=== PATIENT | male | born 1955 | race Caucasian/White ===

== ENCOUNTER 2018-03-12 12:01 | Inpatient (IN) | payer BC, OTHER ==
[2018-03-12] MEDS ORDERED: Morphine 4 MG/ML Syringe IVPUSH ONE (12:15)
[2018-03-12] MEDS ORDERED: Ondansetron 4 MG/2 ML SDV IVPUSH ONE (12:15)
[2018-03-12] MEDS ORDERED: Sodium Chloride 0.9% 1,000 ML IV ONE (12:15)
--- NOTE | 2018-03-12 12:15 | EDM.PDOC ---
ED HPI GENERAL MEDICAL PROBLEM - General Chief Complaint: Abdominal Pain Stated Complaint: UNK Time Seen by Provider: 03/12/18 12:13 Source of Information: Reports: Patient History Limitations: Reports: No Limitations - History of Present Illness INITIAL COMMENTS - FREE TEXT/NARRATIVE: HISTORY AND PHYSICAL: History of present illness: Patient is a 63-year-old female who presents to the emergency room from [facility] with complaints of abdominal pain 4-5 days. During this time he has had a decrease in appetite and has not been eating or drinking appropriately. He states he has not had a bowel movement during this time and feels that his abdomen is distended. Has been able to pass gas, but no BM. An x- ray from the clinic shows gas filled loops of the small bowel which are nonspecific but may represent an ileus. He is here for further evaluation and CT imaging. The x-ray also did show a probable left lower lobe pneumonia. He states he has been coughing frequently over the past couple days but denies any fever or chills. The states that she has stopped his oral Lasix as she was concerned this would make him dehydrated as he has not been eating and drinking. He denies any chest pain, shortness of breath, nausea, vomiting. Past medical history of H. pylori infections, she met brain injury and hemorrhagic stroke. Is a chronic daily alcohol user, last alcoholic drink was yesterday. Denies any drug abuse. Review of systems: As per history of present illness and below otherwise all systems reviewed and negative. Past medical history: As per history of present illness and as reviewed below otherwise noncontributory. Surgical history: As per history of present illness and as reviewed below otherwise noncontributory. Social history: No reported history of drug or alcohol abuse. Family history: As per history of present illness and as reviewed below otherwise noncontributory. Physical exam: General: Well-developed and well-nourished 63-year-old male. Alert and oriented. Nontoxic appearing and in no acute distress. HEENT: Atraumatic, normocephalic, pupils equal and reactive bilaterally, negative for conjunctival pallor or scleral icterus, mucous membranes moist, throat clear, neck supple, nontender, trachea midline. No drooling or trismus noted. No meningeal signs Lungs: Clear to auscultation, breath sounds equal bilaterally, chest nontender. Heart: S1S2, regular rate and rhythm without overt murmur Abdomen: Distended and semi-firm, tender throughout. Hypoactive BS. Negative for masses. Negative for costovertebral tenderness. Pelvis: Stable nontender. Genitourinary: Deferred. Rectal: Deferred. Skin: Pale, intact, warm, dry. No lesions or rashes noted. Extremities: Atraumatic, negative for cords or calf pain. Neurovascular unremarkable. Neuro: Awake, alert, oriented. Cranial nerves II through XII unremarkable. Cerebellum unremarkable. Motor and sensory unremarkable throughout. Exam nonfocal. Notes: Dr Ardon was made aware of this patient early, as she may be seeing him once results are obtained. Patient is aware that we do need to perform a CT of the abdomen and pelvis along with routine lab work. I am to be nothing by mouth until we do received the results of the CT scan. He is agreeable to plan of care. Today's hemoglobin is 8.9(L). I do note a hemoglobin that was drawn on 10/15/16 which was 9.9(L). A Type and Screen was done. Troponin 0.321, patient has no chest pain or SOB. EKG shows NSR with rate 87. Was reviewed by Dr Bedolla as well. Mid left basilar atelectasis and/or infiltrate with a small left pleural effusion. Dr Ardon was down here and did evaluate the CT scan. Patient continues to be pain free; repeat EKG was completed. 1423: CT of the abdomen shows cirrhosis of the liver, moderate amount of abdominal ascites, gastroesophageal rectal varices, and cholelithiasis without evidence of cholecystitis. Dr. Jeffrey was consult at this time and made aware of the patient. He states he will come down to assess and talk with the patient about admission versus transfer. Dr Jeffrey is here to evaluate patient. He is aware the they hypokalemia has yet to be addressed. Will admit this patient to Med/Surg, inpatient, with telemetry. Diagnostics: CBC, CMP, UA, urine drug screen, EtOH, EKG, CT abdomen and pelvis, 2 view chest x-ray Therapeutics: IV fluid, Zofran, morphine Impression: Hypokalemia Cirrhosis of liver Ascites Cholelithiasis Elevated Troponin Plan: Inpatient admission Definitive disposition and diagnosis as appropriate pending reevaluation and review of above. abdomen Pain Score (Numeric/FACES): 4 - Related Data Allergies Allergy/AdvReac Type Severity Reaction Status Date / Time No Known Allergies Allergy Verified 03/12/18 12:05 Home Meds: Home Meds Acamprosate Calcium 2 tab PO TID 10/10/16 [History] Omeprazole Magnesium [Prilosec Otc] 40 mg PO DAILY #30 tablet. 10/15/16 [Rx] Furosemide 20 mg PO BID 03/12/18 [History] LORazepam 1 mg PO QID PRN 03/12/18 [History] buPROPion [buPROPion XL] 150 mg PO DAILY 03/12/18 [History] Past Medical History HEENT History: Reports: Other (See Below) Other HEENT History: top and bottom dentures Cardiovascular History: Reports: Other (See Below) Other Cardiovascular History: hypotension Respiratory History: Reports: Other (See Below) Other Respiratory History: smokes 1 1/2 to 2 packs of cigarettes per day Gastrointestinal History: Reports: Chronic Diarrhea Other Gastrointestinal History: elevated liver enzymes Neurological History: Reports: Head Trauma, TIA Other Neuro History: hx TIA 3 yrs ago, hx head trauma Psychiatric History: Reports: Depression - Infectious Disease History Infectious Disease History: Reports: Chicken Pox, Measles, Mumps - Past Surgical History Head Surgeries/Procedures: Reports: None Social & Family History - Family History Family Medical History: Noncontributory - Tobacco Use Smoking Status *Q: Current Every Day Smoker Years of Tobacco use: 28 Packs/Tins Daily: 1 - Alcohol Use Days Per Week of Alcohol Use: 7 Number of Drinks Per Day: 6 Total Drinks Per Week: 42 - Recreational Drug Use Recreational Drug Use: No ED ROS GENERAL - Review of Systems Review Of Systems: ROS reveals no pertinent complaints other than HPI. ED EXAM, GI/ABD - Physical Exam Exam: See Below (See dictation) Course - Vital Signs Last Recorded V/S: Last Vital Signs Temp 98.2 F 03/12/18 12:05 Pulse 99 03/12/18 13:49 Resp 16 03/12/18 13:49 BP 110/77 03/12/18 13:49 Pulse Ox 94 L 03/12/18 13:49 - Orders/Labs/Meds Orders: Active Orders 24 hr Category Date Time Status Admission Status [Patient Status] [ADT] Stat ADT 06/14/18 15:06 Ordered EKG Documentation Completion [RC] STAT Care 03/12/18 12:27 Active EKG Documentation Completion [RC] STAT Care 03/12/18 13:16 Active CULTURE BLOOD [BC] Stat Lab 03/12/18 12:20 Received CULTURE BLOOD [BC] Stat Lab 03/12/18 12:30 Received DRUG SCREEN, URINE [URCHEM] Stat Lab 03/12/18 13:05 Ordered MAGNESIUM [CHEM] Stat Lab 03/12/18 12:28 Received PHOSPHORUS [CHEM] Stat Lab 03/12/18 12:28 Received UA W/MICROSCOPIC [URIN] Stat Lab 03/12/18 13:05 Ordered Blood Culture x2 Reflex Set [OM.PC] Stat Oth 03/12/18 12:16 Ordered Labs: Laboratory Tests 03/12/18 03/12/18 03/12/18 Range/Units 12:18 12:18 12:28 WBC 6.33 (4.0-11.0) K/uL RBC 2.99 L (4.50-5.90) M/uL Hgb 8.9 L (13.0-17.0) g/dL Hct 27.2 L (38.0-50.0) % MCV 91.0 (80.0-98.0) fL MCH 29.8 (27.0-32.0) pg MCHC 32.7 (31.0-37.0) g/dL RDW Std Deviation 62.0 (28.0-62.0) fl RDW Coeff of Annette 20 H (11.0-15.0) % Plt Count 148 L (150-400) K/uL MPV 9.70 (7.40-12.00) fL Neut % (Auto) 59.0 (48.0-80.0) % Lymph % (Auto) 29.5 (16.0-40.0) % Weld % (Auto) 10.4 (0.0-15.0) % Eos % (Auto) 0.3 (0.0-7.0) % Baso % (Auto) 0.8 (0.0-1.5) % Neut # (Auto) 3.7 (1.4-5.7) K/uL Lymph # (Auto) 1.9 (0.6-2.4) K/uL Weld # (Auto) 0.7 (0.0-0.8) K/uL Eos # (Auto) 0.0 (0.0-0.7) K/uL Baso # (Auto) 0.1 (0.0-0.1) K/uL Nucleated RBC % 0.0 /100WBC Nucleated RBCs # 0 K/uL INR Sodium 135 L (136-148) mmol/L Potassium 2.9 L (3.5-5.1) mmol/L Chloride 95 L (98-107) mmol/L Carbon Dioxide 31.6 (21.0-32.0) mmol/L BUN 10 (7.0-18.0) mg/dL Creatinine 1.0 (0.8-1.3) mg/dL Est Cr Clr Drug Dosing 84.71 mL/min Estimated GFR (MDRD) > 60.0 ml/min Glucose 105 (74-106) mg/dL Calcium 8.2 L (8.5-10.1) mg/dL Total Bilirubin 1.7 H (0.2-1.0) mg/dL AST 83 H (15-37) IU/L ALT 35 (14-63) IU/L Alkaline Phosphatase 151 H (46-116) U/L Troponin I 0.321 H* (0.000-0.056) ng/mL Total Protein 6.5 (6.4-8.2) g/dL Albumin 2.7 L (3.4-5.0) g/dL Globulin 3.8 H (2.0-3.5) g/dL Albumin/Globulin Ratio 0.7 L (1.3-2.8) Amylase 32 (25-115) U/L Lipase 96 (73-393) U/L Urine Color Urine Appearance Urine pH (5.0-8.0) Ur Specific [place] (1.001-1.035) Urine Protein (NEGATIVE) mg/dL Urine Glucose (UA) (NEGATIVE) mg/dL Urine Ketones (NEGATIVE) mg/dL Urine Occult Blood (NEGATIVE) Urine Nitrite (NEGATIVE) Urine Bilirubin (NEGATIVE) Urine Ictotest Urine Urobilinogen (<2.0) EU/dL Ur Leukocyte Esterase (NEGATIVE) Urine RBC (0-2/HPF) Urine WBC (0-5/HPF) Ur Epithelial Cells (NONE-FEW) Calcium Oxalate Crystal (NEGATIVE) Urine Bacteria (NEGATIVE) Urine Opiates Screen (NEGATIVE) Ur Oxycodone Screen (NEGATIVE) Urine Methadone Screen (NEGATIVE) Ur Barbiturates Screen (NEGATIVE) Ur Phencyclidine Scrn (NEGATIVE) Ur Amphetamine Screen (NEGATIVE) U Methamphetamines Scrn (NEGATIVE) U Benzodiazepines Scrn (NEGATIVE) U Cocaine Metab Screen (NEGATIVE) U Marijuana (THC) Screen (NEGATIVE) Ethyl Alcohol 146 mg/dL Blood Type Antibody Screen 03/12/18 03/12/18 03/12/18 Range/Units 12:28 12:46 13:05 WBC (4.0-11.0) K/uL RBC (4.50-5.90) M/uL Hgb (13.0-17.0) g/dL Hct (38.0-50.0) % MCV (80.0-98.0) fL MCH (27.0-32.0) pg MCHC (31.0-37.0) g/dL RDW Std Deviation (28.0-62.0) fl RDW Coeff of Annette (11.0-15.0) % Plt Count (150-400) K/uL MPV (7.40-12.00) fL Neut % (Auto) (48.0-80.0) % Lymph % (Auto) (16.0-40.0) % Weld % (Auto) (0.0-15.0) % Eos % (Auto) (0.0-7.0) % Baso % (Auto) (0.0-1.5) % Neut # (Auto) (1.4-5.7) K/uL Lymph # (Auto) (0.6-2.4) K/uL Weld # (Auto) (0.0-0.8) K/uL Eos # (Auto) (0.0-0.7) K/uL Baso # (Auto) (0.0-0.1) K/uL Nucleated RBC % /100WBC Nucleated RBCs # K/uL INR 1.34 Sodium (136-148) mmol/L Potassium (3.5-5.1) mmol/L Chloride (98-107) mmol/L Carbon Dioxide (21.0-32.0) mmol/L BUN (7.0-18.0) mg/dL Creatinine (0.8-1.3) mg/dL Est Cr Clr Drug Dosing mL/min Estimated GFR (MDRD) ml/min Glucose (74-106) mg/dL Calcium (8.5-10.1) mg/dL Total Bilirubin (0.2-1.0) mg/dL AST (15-37) IU/L ALT (14-63) IU/L Alkaline Phosphatase (46-116) U/L Troponin I (0.000-0.056) ng/mL Total Protein (6.4-8.2) g/dL Albumin (3.4-5.0) g/dL Globulin (2.0-3.5) g/dL Albumin/Globulin Ratio (1.3-2.8) Amylase (25-115) U/L Lipase (73-393) U/L Urine Color YELLOW Urine Appearance CLEAR Urine pH 6.0 (5.0-8.0) Ur Specific [place] 1.020 (1.001-1.035) Urine Protein NEGATIVE (NEGATIVE) mg/dL Urine Glucose (UA) NEGATIVE (NEGATIVE) mg/dL Urine Ketones NEGATIVE (NEGATIVE) mg/dL Urine Occult Blood NEGATIVE (NEGATIVE) Urine Nitrite NEGATIVE (NEGATIVE) Urine Bilirubin MODERATE H (NEGATIVE) Urine Ictotest NEGATIVE Urine Urobilinogen 4.0 H (<2.0) EU/dL Ur Leukocyte Esterase NEGATIVE (NEGATIVE) Urine RBC 0-1 (0-2/HPF) Urine WBC 0-1 (0-5/HPF) Ur Epithelial Cells RARE (NONE-FEW) Calcium Oxalate Crystal OCCASIONAL (NEGATIVE) Urine Bacteria RARE (NEGATIVE) Urine Opiates Screen (NEGATIVE) Ur Oxycodone Screen (NEGATIVE) Urine Methadone Screen (NEGATIVE) Ur Barbiturates Screen (NEGATIVE) Ur Phencyclidine Scrn (NEGATIVE) Ur Amphetamine Screen (NEGATIVE) U Methamphetamines Scrn (NEGATIVE) U Benzodiazepines Scrn (NEGATIVE) U Cocaine Metab Screen (NEGATIVE) U Marijuana (THC) Screen (NEGATIVE) Ethyl Alcohol mg/dL Blood Type O POSITIVE Antibody Screen NEGATIVE 03/12/18 Range/Units 13:05 WBC (4.0-11.0) K/uL RBC (4.50-5.90) M/uL Hgb (13.0-17.0) g/dL Hct (38.0-50.0) % MCV (80.0-98.0) fL MCH (27.0-32.0) pg MCHC (31.0-37.0) g/dL RDW Std Deviation (28.0-62.0) fl RDW Coeff of Annette (11.0-15.0) % Plt Count (150-400) K/uL MPV (7.40-12.00) fL Neut % (Auto) (48.0-80.0) % Lymph % (Auto) (16.0-40.0) % Weld % (Auto) (0.0-15.0) % Eos % (Auto) (0.0-7.0) % Baso % (Auto) (0.0-1.5) % Neut # (Auto) (1.4-5.7) K/uL Lymph # (Auto) (0.6-2.4) K/uL Weld # (Auto) (0.0-0.8) K/uL Eos # (Auto) (0.0-0.7) K/uL Baso # (Auto) (0.0-0.1) K/uL Nucleated RBC % /100WBC Nucleated RBCs # K/uL INR Sodium (136-148) mmol/L Potassium (3.5-5.1) mmol/L Chloride (98-107) mmol/L Carbon Dioxide (21.0-32.0) mmol/L BUN (7.0-18.0) mg/dL Creatinine (0.8-1.3) mg/dL Est Cr Clr Drug Dosing mL/min Estimated GFR (MDRD) ml/min Glucose (74-106) mg/dL Calcium (8.5-10.1) mg/dL Total Bilirubin (0.2-1.0) mg/dL AST (15-37) IU/L ALT (14-63) IU/L Alkaline Phosphatase (46-116) U/L Troponin I (0.000-0.056) ng/mL Total Protein (6.4-8.2) g/dL Albumin (3.4-5.0) g/dL Globulin (2.0-3.5) g/dL Albumin/Globulin Ratio (1.3-2.8) Amylase (25-115) U/L Lipase (73-393) U/L Urine Color Urine Appearance Urine pH (5.0-8.0) Ur Specific [place] (1.001-1.035) Urine Protein (NEGATIVE) mg/dL Urine Glucose (UA) (NEGATIVE) mg/dL Urine Ketones (NEGATIVE) mg/dL Urine Occult Blood (NEGATIVE) Urine Nitrite (NEGATIVE) Urine Bilirubin (NEGATIVE) Urine Ictotest Urine Urobilinogen (<2.0) EU/dL Ur Leukocyte Esterase (NEGATIVE) Urine RBC (0-2/HPF) Urine WBC (0-5/HPF) Ur Epithelial Cells (NONE-FEW) Calcium Oxalate Crystal (NEGATIVE) Urine Bacteria (NEGATIVE) Urine Opiates Screen NEGATIVE (NEGATIVE) Ur Oxycodone Screen NEGATIVE (NEGATIVE) Urine Methadone Screen NEGATIVE (NEGATIVE) Ur Barbiturates Screen NEGATIVE (NEGATIVE) Ur Phencyclidine Scrn NEGATIVE (NEGATIVE) Ur Amphetamine Screen NEGATIVE (NEGATIVE) U Methamphetamines Scrn NEGATIVE (NEGATIVE) U Benzodiazepines Scrn POSITIVE (NEGATIVE) U Cocaine Metab Screen NEGATIVE (NEGATIVE) U Marijuana (THC) Screen NEGATIVE (NEGATIVE) Ethyl Alcohol mg/dL Blood Type Antibody Screen Meds: Medications Discontinued Medications Generic Name Dose Route Start Last Admin Trade Name Freq PRN Reason Stop Dose Admin Aspirin 324 mg 03/12/18 14:04 03/12/18 14:39 Aspirin PO 03/12/18 14:05 324 mg ONETIME ONE Administration Sodium Chloride 1,000 mls @ 999 mls/hr 03/12/18 12:15 03/12/18 12:32 Normal Saline IV 03/12/18 13:15 999 mls/hr STAT ONE Administration Iopamidol 100 ml 03/12/18 13:31 03/12/18 13:31 Isovue Multipack-370 (76%) IVPUSH 03/12/18 13:32 100 ml ONETIME STA Administration Morphine Sulfate 4 mg 03/12/18 12:15 03/12/18 12:50 Morphine IVPUSH 03/12/18 12:16 Not Given ONETIME ONE Morphine Sulfate 4 mg 03/12/18 12:45 03/12/18 12:46 Morphine IVPUSH 03/12/18 12:46 2 mg ONETIME ONE Administration Ondansetron HCl 4 mg 03/12/18 12:15 03/12/18 12:37 Zofran IVPUSH 03/12/18 12:16 4 mg ONETIME ONE Administration Potassium Chloride 40 meq 03/12/18 15:07 Klor-Con M20 PO 03/12/18 15:08 ONETIME ONE Departure - Departure Time of Disposition: 15:09 Disposition: Admitted As Inpatient 68 Clinical Impression: Hypokalemia, Elevated troponin Cirrhosis of liver Qualifiers: Hepatic cirrhosis type: alcoholic cirrhosis Ascites presence: with ascites Qualified Code(s): K70.31 - Alcoholic cirrhosis of liver with ascites Ascites Qualifiers: Ascites type: due to alcoholic cirrhosis Qualified Code(s): K70.31 - Alcoholic cirrhosis of liver with ascites Cholelithiasis Qualifiers: Cholelithiasis location: gallbladder Cholecystitis presence: without cholecystitis Biliary obstruction: without biliary obstruction Qualified Code(s) : K80.20 - Calculus of gallbladder without cholecystitis without obstruction - Discharge Information Referrals: PCP,None [Primary Care Provider] - Forms: ED Department Discharge - My Orders Last 24 Hours: My Active Orders 03/12/18 12:16 Blood Culture x2 Reflex Set [OM.PC] Stat 03/12/18 12:20 CULTURE BLOOD [BC] Stat 03/12/18 12:27 EKG Documentation Completion [RC] STAT 03/12/18 12:30 CULTURE BLOOD [BC] Stat 03/12/18 13:05 DRUG SCREEN, URINE [URCHEM] Stat UA W/MICROSCOPIC [URIN] Stat 03/12/18 13:16 EKG Documentation Completion [RC] STAT 03/12/18 15:06 Admission Status [Patient Status] [ADT] Stat - Assessment/Plan Last 24 Hours: My Active Orders 03/12/18 12:16 Blood Culture x2 Reflex Set [OM.PC] Stat 03/12/18 12:20 CULTURE BLOOD [BC] Stat 03/12/18 12:27 EKG Documentation Completion [RC] STAT 03/12/18 12:30 CULTURE BLOOD [BC] Stat 03/12/18 13:05 DRUG SCREEN, URINE [URCHEM] Stat UA W/MICROSCOPIC [URIN] Stat 03/12/18 13:16 EKG Documentation Completion [RC] STAT 03/12/18 15:06 Admission Status [Patient Status] [ADT] Stat
[2018-03-12] MEDS ORDERED: Morphine 2 MG/ML Syringe IVPUSH ONE (12:45)
[2018-03-12 12:52] LABS: CHLORIDE,CL 95 mmol/L (98-107); SODIUM,NA 135 mmol/L (136-148)
[2018-03-12] MEDS ORDERED: Iopamidol 755 MG/ML 500 ML Multipack Bottle IVPUSH STA (13:31)
--- NOTE | 2018-03-12 13:44 | CR ---
EXAMINATION: Two-view chest (PA and Lateral views). HISTORY: Possible ileus. FINDINGS: The trachea is midline. The cardiomediastinal silhouette is within normal limits. Mild left basilar a telectasis and/or infiltrate with a small left pleural effusion. Healing subacute right rib fracture. IMPRESSION: 1. Mild left basilar atelectasis and/or infiltrate with a small left pleural effusion.
[2018-03-12] MEDS ORDERED: Aspirin 81 MG Tab.Chew PO ONE (14:04)
--- NOTE | 2018-03-12 14:18 | CT ---
CT of the abdomen and pelvis with contrast. HISTORY: Possible ileus TECHNIQUE: Axial CT images were obtained of the abdomen and pelvis following administration of 100 mL of Isovue-370 in the right wrist without complication. Coronal and sagittal reconstructions obtained . FINDINGS: There is a small left pleural effusion. Bibasilar atelectasis. The liver is heterogeneous and nodular in contour. There is a moderate amount of abdominal and pelvic ascites. Small splenic cyst. Adrenal glands and pancreas appear grossly normal. Cholelithiasis the o therwise evidence of cholecystitis. Gastroesophageal varices noted. The kidneys enhance and function symmetrically without evidence of obstructive uropathy. The large and small bowel are normal in caliber without evidence of obstruction. No focal pericolonic inflammation or stranding. The urinary bladder is normal. No pelvic lymphadenopathy or free pelvic f luid. Old right-sided rib fracture. No suspicious osseous abnormalities. Internal rectal varices also noted. No suspicious osseous abnormalities. IMPRESSION: 1. Cirrhosis of the liver. 2. Moderate amount of abdominal ascites. 3. Gastroesophageal rectal varices. 4. Cholelithiasis without evidence of cholecystitis.
[2018-03-12] MEDS ORDERED: Potassium Chloride 20 MEQ Tab.ER PO ONE (15:07)
[2018-03-12] MEDS ORDERED: Ondansetron 4 MG/2 ML SDV IVPUSH PRN (15:15)
[2018-03-12] MEDS ORDERED: LORazepam 2 MG/ML SDV IVPUSH PRN (15:23)
--- NOTE | 2018-03-12 15:27 | PCM.HP ---
H&P History of Present Illness - General Date of Service: 03/12/18 Admit Problem/Dx: Admission Diagnosis/Problem Admission Diagnosis/Problem Cirrhosis of liver - History of Present Illness Initial Comments - Free Text/Narative: 63 yo male who presents with several week history of abdominal bloating and constipation. In the ED he had CT scan of the abdomen which reports liver cirrhosis, moderate amount of ascities, gastric and rectal varicies. Patient reports drinking a liter of liqour a day since the 80s. Patient reports tremors when he stops drinking. He denies any blood in the stool or vomiting. He denies any fevers or shortness of breath abdomen Pain Score (Numeric/FACES): 4 - Related Data Allergies/Adverse Reactions: Allergies Allergy/AdvReac Type Severity Reaction Status Date / Time No Known Allergies Allergy Verified 03/12/18 12:05 Home Medications: Home Meds Acamprosate Calcium 2 tab PO TID 10/10/16 [History] Omeprazole Magnesium [Prilosec Otc] 40 mg PO DAILY #30 tablet. 10/15/16 [Rx] Furosemide 20 mg PO BID 03/12/18 [History] LORazepam 1 mg PO QID PRN 03/12/18 [History] buPROPion [buPROPion XL] 150 mg PO DAILY 03/12/18 [History] Past Medical History HEENT History: Reports: Other (See Below) Other HEENT History: top and bottom dentures Cardiovascular History: Reports: Other (See Below) Other Cardiovascular History: hypotension Respiratory History: Reports: Other (See Below) Other Respiratory History: smokes 1 1/2 to 2 packs of cigarettes per day Gastrointestinal History: Reports: Chronic Diarrhea Other Gastrointestinal History: elevated liver enzymes Neurological History: Reports: Head Trauma, TIA Other Neuro History: hx TIA 3 yrs ago, hx head trauma Psychiatric History: Reports: Depression - Infectious Disease History Infectious Disease History: Reports: Chicken Pox, Measles, Mumps - Past Surgical History Head Surgeries/Procedures: Reports: None Social & Family History - Family History Family Medical History: Noncontributory - Tobacco Use Smoking Status *Q: Current Every Day Smoker Years of Tobacco use: 28 Packs/Tins Daily: 1 - Alcohol Use Days Per Week of Alcohol Use: 7 Number of Drinks Per Day: 6 Total Drinks Per Week: 42 - Recreational Drug Use Recreational Drug Use: No H&P Review of Systems - Review of Systems: Review Of Systems: ROS reveals no pertinent complaints other than HPI. Exam - Exam Exam: See Below - Vital Signs Vital Signs: Last Vital Signs Temp 36.8 C 03/12/18 12:05 Pulse 99 03/12/18 13:49 Resp 16 03/12/18 13:49 BP 110/77 03/12/18 13:49 Pulse Ox 94 L 03/12/18 13:49 Weight: 77.2 kg - Exam General: Alert, Oriented HEENT: Mucosa Moist & Urania Lungs: Clear to Auscultation, Normal Respiratory Effort Cardiovascular: Regular Rate, Regular Rhythm GI/Abdominal Exam: Soft, Non-Tender, Distended Extremities: Non-Tender, No Pedal Edema - Patient Data Lab Results Last 24 hrs: Laboratory Results - last 24 hr 03/12/18 03/12/18 03/12/18 Range/Units 12:18 12:18 12:28 WBC 6.33 (4.0-11.0) K/uL RBC 2.99 L (4.50-5.90) M/uL Hgb 8.9 L (13.0-17.0) g/dL Hct 27.2 L (38.0-50.0) % MCV 91.0 (80.0-98.0) fL MCH 29.8 (27.0-32.0) pg MCHC 32.7 (31.0-37.0) g/dL RDW Std Deviation 62.0 (28.0-62.0) fl RDW Coeff of Annette 20 H (11.0-15.0) % Plt Count 148 L (150-400) K/uL MPV 9.70 (7.40-12.00) fL Neut % (Auto) 59.0 (48.0-80.0) % Lymph % (Auto) 29.5 (16.0-40.0) % [place] % (Auto) 10.4 (0.0-15.0) % Eos % (Auto) 0.3 (0.0-7.0) % Baso % (Auto) 0.8 (0.0-1.5) % Neut # (Auto) 3.7 (1.4-5.7) K/uL Lymph # (Auto) 1.9 (0.6-2.4) K/uL [place] # (Auto) 0.7 (0.0-0.8) K/uL Eos # (Auto) 0.0 (0.0-0.7) K/uL Baso # (Auto) 0.1 (0.0-0.1) K/uL Nucleated RBC % 0.0 /100WBC Nucleated RBCs # 0 K/uL INR Sodium 135 L (136-148) mmol/L Potassium 2.9 L (3.5-5.1) mmol/L Chloride 95 L (98-107) mmol/L Carbon Dioxide 31.6 (21.0-32.0) mmol/L BUN 10 (7.0-18.0) mg/dL Creatinine 1.0 (0.8-1.3) mg/dL Est Cr Clr Drug Dosing 84.71 mL/min Estimated GFR (MDRD) > 60.0 ml/min Glucose 105 (74-106) mg/dL Calcium 8.2 L (8.5-10.1) mg/dL Phosphorus (2.6-4.7) mg/dL Magnesium (1.8-2.4) mg/dL Total Bilirubin 1.7 H (0.2-1.0) mg/dL AST 83 H (15-37) IU/L ALT 35 (14-63) IU/L Alkaline Phosphatase 151 H (46-116) U/L Troponin I 0.321 H* (0.000-0.056) ng/mL Total Protein 6.5 (6.4-8.2) g/dL Albumin 2.7 L (3.4-5.0) g/dL Globulin 3.8 H (2.0-3.5) g/dL Albumin/Globulin Ratio 0.7 L (1.3-2.8) Amylase 32 (25-115) U/L Lipase 96 (73-393) U/L Urine Color Urine Appearance Urine pH (5.0-8.0) Ur Specific Orange (1.001-1.035) Urine Protein (NEGATIVE) mg/dL Urine Glucose (UA) (NEGATIVE) mg/dL Urine Ketones (NEGATIVE) mg/dL Urine Occult Blood (NEGATIVE) Urine Nitrite (NEGATIVE) Urine Bilirubin (NEGATIVE) Urine Ictotest Urine Urobilinogen (<2.0) EU/dL Ur Leukocyte Esterase (NEGATIVE) Urine RBC (0-2/HPF) Urine WBC (0-5/HPF) Ur Epithelial Cells (NONE-FEW) Calcium Oxalate Crystal (NEGATIVE) Urine Bacteria (NEGATIVE) Urine Opiates Screen (NEGATIVE) Ur Oxycodone Screen (NEGATIVE) Urine Methadone Screen (NEGATIVE) Ur Barbiturates Screen (NEGATIVE) Ur Phencyclidine Scrn (NEGATIVE) Ur Amphetamine Screen (NEGATIVE) U Methamphetamines Scrn (NEGATIVE) U Benzodiazepines Scrn (NEGATIVE) U Cocaine Metab Screen (NEGATIVE) U Marijuana (THC) Screen (NEGATIVE) Ethyl Alcohol 146 mg/dL Blood Type Antibody Screen 03/12/18 03/12/18 03/12/18 Range/Units 12:28 12:28 12:46 WBC (4.0-11.0) K/uL RBC (4.50-5.90) M/uL Hgb (13.0-17.0) g/dL Hct (38.0-50.0) % MCV (80.0-98.0) fL MCH (27.0-32.0) pg MCHC (31.0-37.0) g/dL RDW Std Deviation (28.0-62.0) fl RDW Coeff of Annette (11.0-15.0) % Plt Count (150-400) K/uL MPV (7.40-12.00) fL Neut % (Auto) (48.0-80.0) % Lymph % (Auto) (16.0-40.0) % [place] % (Auto) (0.0-15.0) % Eos % (Auto) (0.0-7.0) % Baso % (Auto) (0.0-1.5) % Neut # (Auto) (1.4-5.7) K/uL Lymph # (Auto) (0.6-2.4) K/uL [place] # (Auto) (0.0-0.8) K/uL Eos # (Auto) (0.0-0.7) K/uL Baso # (Auto) (0.0-0.1) K/uL Nucleated RBC % /100WBC Nucleated RBCs # K/uL INR 1.34 Sodium (136-148) mmol/L Potassium (3.5-5.1) mmol/L Chloride (98-107) mmol/L Carbon Dioxide (21.0-32.0) mmol/L BUN (7.0-18.0) mg/dL Creatinine (0.8-1.3) mg/dL Est Cr Clr Drug Dosing mL/min Estimated GFR (MDRD) ml/min Glucose (74-106) mg/dL Calcium (8.5-10.1) mg/dL Phosphorus 2.9 (2.6-4.7) mg/dL Magnesium 1.5 L (1.8-2.4) mg/dL Total Bilirubin (0.2-1.0) mg/dL AST (15-37) IU/L ALT (14-63) IU/L Alkaline Phosphatase (46-116) U/L Troponin I (0.000-0.056) ng/mL Total Protein (6.4-8.2) g/dL Albumin (3.4-5.0) g/dL Globulin (2.0-3.5) g/dL Albumin/Globulin Ratio (1.3-2.8) Amylase (25-115) U/L Lipase (73-393) U/L Urine Color Urine Appearance Urine pH (5.0-8.0) Ur Specific Orange (1.001-1.035) Urine Protein (NEGATIVE) mg/dL Urine Glucose (UA) (NEGATIVE) mg/dL Urine Ketones (NEGATIVE) mg/dL Urine Occult Blood (NEGATIVE) Urine Nitrite (NEGATIVE) Urine Bilirubin (NEGATIVE) Urine Ictotest Urine Urobilinogen (<2.0) EU/dL Ur Leukocyte Esterase (NEGATIVE) Urine RBC (0-2/HPF) Urine WBC (0-5/HPF) Ur Epithelial Cells (NONE-FEW) Calcium Oxalate Crystal (NEGATIVE) Urine Bacteria (NEGATIVE) Urine Opiates Screen (NEGATIVE) Ur Oxycodone Screen (NEGATIVE) Urine Methadone Screen (NEGATIVE) Ur Barbiturates Screen (NEGATIVE) Ur Phencyclidine Scrn (NEGATIVE) Ur Amphetamine Screen (NEGATIVE) U Methamphetamines Scrn (NEGATIVE) U Benzodiazepines Scrn (NEGATIVE) U Cocaine Metab Screen (NEGATIVE) U Marijuana (THC) Screen (NEGATIVE) Ethyl Alcohol mg/dL Blood Type O POSITIVE Antibody Screen NEGATIVE 03/12/18 03/12/18 Range/Units 13:05 13:05 WBC (4.0-11.0) K/uL RBC (4.50-5.90) M/uL Hgb (13.0-17.0) g/dL Hct (38.0-50.0) % MCV (80.0-98.0) fL MCH (27.0-32.0) pg MCHC (31.0-37.0) g/dL RDW Std Deviation (28.0-62.0) fl RDW Coeff of Annette (11.0-15.0) % Plt Count (150-400) K/uL MPV (7.40-12.00) fL Neut % (Auto) (48.0-80.0) % Lymph % (Auto) (16.0-40.0) % [place] % (Auto) (0.0-15.0) % Eos % (Auto) (0.0-7.0) % Baso % (Auto) (0.0-1.5) % Neut # (Auto) (1.4-5.7) K/uL Lymph # (Auto) (0.6-2.4) K/uL [place] # (Auto) (0.0-0.8) K/uL Eos # (Auto) (0.0-0.7) K/uL Baso # (Auto) (0.0-0.1) K/uL Nucleated RBC % /100WBC Nucleated RBCs # K/uL INR Sodium (136-148) mmol/L Potassium (3.5-5.1) mmol/L Chloride (98-107) mmol/L Carbon Dioxide (21.0-32.0) mmol/L BUN (7.0-18.0) mg/dL Creatinine (0.8-1.3) mg/dL Est Cr Clr Drug Dosing mL/min Estimated GFR (MDRD) ml/min Glucose (74-106) mg/dL Calcium (8.5-10.1) mg/dL Phosphorus (2.6-4.7) mg/dL Magnesium (1.8-2.4) mg/dL Total Bilirubin (0.2-1.0) mg/dL AST (15-37) IU/L ALT (14-63) IU/L Alkaline Phosphatase (46-116) U/L Troponin I (0.000-0.056) ng/mL Total Protein (6.4-8.2) g/dL Albumin (3.4-5.0) g/dL Globulin (2.0-3.5) g/dL Albumin/Globulin Ratio (1.3-2.8) Amylase (25-115) U/L Lipase (73-393) U/L Urine Color YELLOW Urine Appearance CLEAR Urine pH 6.0 (5.0-8.0) Ur Specific Orange 1.020 (1.001-1.035) Urine Protein NEGATIVE (NEGATIVE) mg/dL Urine Glucose (UA) NEGATIVE (NEGATIVE) mg/dL Urine Ketones NEGATIVE (NEGATIVE) mg/dL Urine Occult Blood NEGATIVE (NEGATIVE) Urine Nitrite NEGATIVE (NEGATIVE) Urine Bilirubin MODERATE H (NEGATIVE) Urine Ictotest NEGATIVE Urine Urobilinogen 4.0 H (<2.0) EU/dL Ur Leukocyte Esterase NEGATIVE (NEGATIVE) Urine RBC 0-1 (0-2/HPF) Urine WBC 0-1 (0-5/HPF) Ur Epithelial Cells RARE (NONE-FEW) Calcium Oxalate Crystal OCCASIONAL (NEGATIVE) Urine Bacteria RARE (NEGATIVE) Urine Opiates Screen NEGATIVE (NEGATIVE) Ur Oxycodone Screen NEGATIVE (NEGATIVE) Urine Methadone Screen NEGATIVE (NEGATIVE) Ur Barbiturates Screen NEGATIVE (NEGATIVE) Ur Phencyclidine Scrn NEGATIVE (NEGATIVE) Ur Amphetamine Screen NEGATIVE (NEGATIVE) U Methamphetamines Scrn NEGATIVE (NEGATIVE) U Benzodiazepines Scrn POSITIVE (NEGATIVE) U Cocaine Metab Screen NEGATIVE (NEGATIVE) U Marijuana (THC) Screen NEGATIVE (NEGATIVE) Ethyl Alcohol mg/dL Blood Type Antibody Screen Result Diagrams: 03/13/18 04:55 03/13/18 04:55 Problem List Initiated/Reviewed/Updated: Yes Orders Last 24hrs: Active Orders 24 hr Category Date Time Status Admission Status [Patient Status] [ADT] Stat ADT 03/12/18 15:06 Active EKG Documentation Completion [RC] STAT Care 03/12/18 12:27 Active EKG Documentation Completion [RC] STAT Care 03/12/18 13:16 Active Oxygen Therapy [RC] PRN Care 03/12/18 15:17 Ordered VTE/DVT Education [RC] PER UNIT ROUTINE Care 03/12/18 15:17 Ordered Vital Signs [RC] Q4H Care 03/12/18 15:17 Ordered Regular Diet [DIET] Diet 03/12/18 Breakfast Ordered Guidance Paracentesis [US] Urgent Exams 03/12/18 15:08 Ordered CBC WITH AUTO DIFF [HEME] AM Lab 03/13/18 05:11 Ordered COMPREHENSIVE METABOLIC PN,CMP [CHEM] AM Lab 03/13/18 05:11 Ordered CULTURE BLOOD [BC] Stat Lab 03/12/18 12:20 Received CULTURE BLOOD [BC] Stat Lab 03/12/18 12:30 Received DRUG SCREEN, URINE [URCHEM] Stat Lab 03/12/18 13:05 Ordered INR,PT,PROTHROMBIN TIME [COAG] AM Lab 03/13/18 05:11 Ordered MAGNESIUM [CHEM] AM Lab 03/13/18 05:11 Ordered PHOSPHORUS [CHEM] AM Lab 03/13/18 05:11 Ordered TROPONIN I [CHEM] Q6H Lab 03/12/18 19:00 Ordered TROPONIN I [CHEM] Q6H Lab 03/13/18 01:00 Ordered UA W/MICROSCOPIC [URIN] Stat Lab 03/12/18 13:05 Ordered Folic Acid Med 03/12/18 15:30 Ordered 1 mg PO DAILY LORazepam [Ativan] Med 03/12/18 15:23 Ordered See Protocol IVPUSH Q4H PRN Ondansetron [Zofran] Med 03/12/18 15:15 Ordered 4 mg IVPUSH Q4H PRN Thiamine [Vitamin B-1] Med 03/12/18 15:30 Ordered 100 mg PO DAILY Blood Culture x2 Reflex Set [OM.PC] Stat Oth 03/12/18 12:16 Ordered Sequential Compression Device [OM.PC] Per Unit Routine Oth 03/12/18 15:19 Ordered Resuscitation Status Routine Resus Stat 03/12/18 15:15 Ordered Medication Orders Folic Acid (Folic Acid) 1 mg PO DAILY JAIMIE Lorazepam (Ativan) 0 mg IVPUSH Q4H PRN; Protocol PRN Reason: Agitation Ondansetron HCl (Zofran) 4 mg IVPUSH Q4H PRN PRN Reason: Nausea Thiamine HCl (Vitamin B-1) 100 mg PO DAILY [facility] Assessment/Plan Comment:: 63 yo male who presents with ETOH cirrhosis, ascities, and constipation ETOH cirrhosis: U/S guided paracentesis ordered Hypokalemia: replacing ETOH abuse: CIWA protocol Possible pneumonia seen on CXR at [facility]: will treat with levaquin
--- NOTE | 2018-03-12 17:13 | US ---
EXAMINATION: Ultrasound guided paracentesis. HISTORY: Ascites. FINDINGS/TECHNIQUE: The procedure, risks, and benefits were discussed with the patient. Written informed consent was obta ined. The right lower quadrant was sterilely prepped and draped. 1% lidocaine was administered for [place] anesthesia. Using ultrasound guidance a 6 [place] Proteostasis [employer] centesis needle was advanced. The catheter was left in place. 4.8 L of yellow fluid was collected. The patient tolerated the procedure well. IMPRESSION: Successful US guided paracentesis.
[2018-03-12] MEDS: Thiamine 100 MG Tab PO SCH (18:09)
[2018-03-12] MEDS: Folic Acid 1 MG Tab PO SCH (18:09)
[2018-03-13] MEDS: Levofloxacin/Dextrose 5%-Water 750 MG in Premix Bag 1 BAG IV SCH (03:00)
[2018-03-13 05:54] LABS: CHLORIDE,CL 96 mmol/L (98-107); SODIUM,NA 132 mmol/L (136-148)
[2018-03-13] MEDS: Folic Acid 1 MG Tab PO SCH (08:27)
[2018-03-13] MEDS: Thiamine 100 MG Tab PO SCH (08:28)
[2018-03-13] MEDS ORDERED: Potassium Chloride 20 MEQ Tab.ER PO ONE (09:22)
[2018-03-13] MEDS ORDERED: Magnesium Sulfate/Water 4 GM in Premix Bag 1 BAG IV ONE (09:22)
[2018-03-13] MEDS: Pantoprazole 40 MG Tab.CR PO SCH (10:24)
[2018-03-13] MEDS: Phosphorus #1 250 MG Tab PO SCH ×2 (10:24→21:25)
[2018-03-13] MEDS ORDERED: Bisacodyl 5 MG Tab PO PRN (12:04)
[2018-03-13] MEDS ORDERED: Polyethylene Glycol 3350 Powder 17 GM Packet PO PRN (12:05)
--- NOTE | 2018-03-13 12:07 | PCM.PN ---
- General Info Date of Service: 03/13/18 - Review of Systems Systems Review Comment:: feeling well, bloating improved after paracentesis - Patient Data Vitals - Most Recent: Last Vital Signs Temp 36.9 C 03/13/18 08:00 Pulse 94 03/13/18 08:00 Resp 14 03/13/18 08:00 BP 110/64 03/13/18 08:00 Pulse Ox 93 L 03/13/18 08:00 Weight - Most Recent: 77.2 kg I&O - Last 24 Hours: Intake & Output 03/12/18 03/13/18 03/13/18 22:59 06:59 14:59 Intake Total 900 Output Total 145 Balance 755 Lab Results Last 24 Hours: Laboratory Results - last 24 hr 03/12/18 03/12/18 03/12/18 Range/Units 12:18 12:18 12:28 WBC 6.33 (4.0-11.0) K/uL RBC 2.99 L (4.50-5.90) M/uL Hgb 8.9 L (13.0-17.0) g/dL Hct 27.2 L (38.0-50.0) % MCV 91.0 (80.0-98.0) fL MCH 29.8 (27.0-32.0) pg MCHC 32.7 (31.0-37.0) g/dL RDW Std Deviation 62.0 (28.0-62.0) fl RDW Coeff of Annette 20 H (11.0-15.0) % Plt Count 148 L (150-400) K/uL MPV 9.70 (7.40-12.00) fL Neut % (Auto) 59.0 (48.0-80.0) % Lymph % (Auto) 29.5 (16.0-40.0) % Lake % (Auto) 10.4 (0.0-15.0) % Eos % (Auto) 0.3 (0.0-7.0) % Baso % (Auto) 0.8 (0.0-1.5) % Neut # (Auto) 3.7 (1.4-5.7) K/uL Lymph # (Auto) 1.9 (0.6-2.4) K/uL Lake # (Auto) 0.7 (0.0-0.8) K/uL Eos # (Auto) 0.0 (0.0-0.7) K/uL Baso # (Auto) 0.1 (0.0-0.1) K/uL Nucleated RBC % 0.0 /100WBC Nucleated RBCs # 0 K/uL INR Sodium 135 L (136-148) mmol/L Potassium 2.9 L (3.5-5.1) mmol/L Chloride 95 L (98-107) mmol/L Carbon Dioxide 31.6 (21.0-32.0) mmol/L BUN 10 (7.0-18.0) mg/dL Creatinine 1.0 (0.8-1.3) mg/dL Est Cr Clr Drug Dosing 84.71 mL/min Estimated GFR (MDRD) > 60.0 ml/min Glucose 105 (74-106) mg/dL Calcium 8.2 L (8.5-10.1) mg/dL Phosphorus (2.6-4.7) mg/dL Magnesium (1.8-2.4) mg/dL Total Bilirubin 1.7 H (0.2-1.0) mg/dL AST 83 H (15-37) IU/L ALT 35 (14-63) IU/L Alkaline Phosphatase 151 H (46-116) U/L Troponin I 0.321 H* (0.000-0.056) ng/mL Total Protein 6.5 (6.4-8.2) g/dL Albumin 2.7 L (3.4-5.0) g/dL Globulin 3.8 H (2.0-3.5) g/dL Albumin/Globulin Ratio 0.7 L (1.3-2.8) Amylase 32 (25-115) U/L Lipase 96 (73-393) U/L Urine Color Urine Appearance Urine pH (5.0-8.0) Ur Specific [place] (1.001-1.035) Urine Protein (NEGATIVE) mg/dL Urine Glucose (UA) (NEGATIVE) mg/dL Urine Ketones (NEGATIVE) mg/dL Urine Occult Blood (NEGATIVE) Urine Nitrite (NEGATIVE) Urine Bilirubin (NEGATIVE) Urine Ictotest Urine Urobilinogen (<2.0) EU/dL Ur Leukocyte Esterase (NEGATIVE) Urine RBC (0-2/HPF) Urine WBC (0-5/HPF) Ur Epithelial Cells (NONE-FEW) Calcium Oxalate Crystal (NEGATIVE) Urine Bacteria (NEGATIVE) Fluid Type Fluid Color Fluid Appearance Fluid WBC K/uL Fluid RBC M/uL Fluid Mononuclear Cell % Fl Polymorphonucl Cell % Fluid Glucose mg/dL Fluid Total Protein g/dL Fluid Albumin g/dL Fluid LDH U/L Urine Opiates Screen (NEGATIVE) Ur Oxycodone Screen (NEGATIVE) Urine Methadone Screen (NEGATIVE) Ur Barbiturates Screen (NEGATIVE) Ur Phencyclidine Scrn (NEGATIVE) Ur Amphetamine Screen (NEGATIVE) U Methamphetamines Scrn (NEGATIVE) U Benzodiazepines Scrn (NEGATIVE) U Cocaine Metab Screen (NEGATIVE) U Marijuana (THC) Screen (NEGATIVE) Ethyl Alcohol 146 mg/dL Blood Type Antibody Screen 03/12/18 03/12/18 03/12/18 Range/Units 12:28 12:28 12:46 WBC (4.0-11.0) K/uL RBC (4.50-5.90) M/uL Hgb (13.0-17.0) g/dL Hct (38.0-50.0) % MCV (80.0-98.0) fL MCH (27.0-32.0) pg MCHC (31.0-37.0) g/dL RDW Std Deviation (28.0-62.0) fl RDW Coeff of Annette (11.0-15.0) % Plt Count (150-400) K/uL MPV (7.40-12.00) fL Neut % (Auto) (48.0-80.0) % Lymph % (Auto) (16.0-40.0) % Lake % (Auto) (0.0-15.0) % Eos % (Auto) (0.0-7.0) % Baso % (Auto) (0.0-1.5) % Neut # (Auto) (1.4-5.7) K/uL Lymph # (Auto) (0.6-2.4) K/uL [place] # (Auto) (0.0-0.8) K/uL Eos # (Auto) (0.0-0.7) K/uL Baso # (Auto) (0.0-0.1) K/uL Nucleated RBC % /100WBC Nucleated RBCs # K/uL INR 1.34 Sodium (136-148) mmol/L Potassium (3.5-5.1) mmol/L Chloride (98-107) mmol/L Carbon Dioxide (21.0-32.0) mmol/L BUN (7.0-18.0) mg/dL Creatinine (0.8-1.3) mg/dL Est Cr Clr Drug Dosing mL/min Estimated GFR (MDRD) ml/min Glucose (74-106) mg/dL Calcium (8.5-10.1) mg/dL Phosphorus 2.9 (2.6-4.7) mg/dL Magnesium 1.5 L (1.8-2.4) mg/dL Total Bilirubin (0.2-1.0) mg/dL AST (15-37) IU/L ALT (14-63) IU/L Alkaline Phosphatase (46-116) U/L Troponin I (0.000-0.056) ng/mL Total Protein (6.4-8.2) g/dL Albumin (3.4-5.0) g/dL Globulin (2.0-3.5) g/dL Albumin/Globulin Ratio (1.3-2.8) Amylase (25-115) U/L Lipase (73-393) U/L Urine Color Urine Appearance Urine pH (5.0-8.0) Ur Specific [place] (1.001-1.035) Urine Protein (NEGATIVE) mg/dL Urine Glucose (UA) (NEGATIVE) mg/dL Urine Ketones (NEGATIVE) mg/dL Urine Occult Blood (NEGATIVE) Urine Nitrite (NEGATIVE) Urine Bilirubin (NEGATIVE) Urine Ictotest Urine Urobilinogen (<2.0) EU/dL Ur Leukocyte Esterase (NEGATIVE) Urine RBC (0-2/HPF) Urine WBC (0-5/HPF) Ur Epithelial Cells (NONE-FEW) Calcium Oxalate Crystal (NEGATIVE) Urine Bacteria (NEGATIVE) Fluid Type Fluid Color Fluid Appearance Fluid WBC K/uL Fluid RBC M/uL Fluid Mononuclear Cell % Fl Polymorphonucl Cell % Fluid Glucose mg/dL Fluid Total Protein g/dL Fluid Albumin g/dL Fluid LDH U/L Urine Opiates Screen (NEGATIVE) Ur Oxycodone Screen (NEGATIVE) Urine Methadone Screen (NEGATIVE) Ur Barbiturates Screen (NEGATIVE) Ur Phencyclidine Scrn (NEGATIVE) Ur Amphetamine Screen (NEGATIVE) U Methamphetamines Scrn (NEGATIVE) U Benzodiazepines Scrn (NEGATIVE) U Cocaine Metab Screen (NEGATIVE) U Marijuana (THC) Screen (NEGATIVE) Ethyl Alcohol mg/dL Blood Type O POSITIVE Antibody Screen NEGATIVE 03/12/18 03/12/18 03/12/18 Range/Units 13:05 13:05 16:45 WBC (4.0-11.0) K/uL RBC (4.50-5.90) M/uL Hgb (13.0-17.0) g/dL Hct (38.0-50.0) % MCV (80.0-98.0) fL MCH (27.0-32.0) pg MCHC (31.0-37.0) g/dL RDW Std Deviation (28.0-62.0) fl RDW Coeff of Annette (11.0-15.0) % Plt Count (150-400) K/uL MPV (7.40-12.00) fL Neut % (Auto) (48.0-80.0) % Lymph % (Auto) (16.0-40.0) % Lake % (Auto) (0.0-15.0) % Eos % (Auto) (0.0-7.0) % Baso % (Auto) (0.0-1.5) % Neut # (Auto) (1.4-5.7) K/uL Lymph # (Auto) (0.6-2.4) K/uL [place] # (Auto) (0.0-0.8) K/uL Eos # (Auto) (0.0-0.7) K/uL Baso # (Auto) (0.0-0.1) K/uL Nucleated RBC % /100WBC Nucleated RBCs # K/uL INR Sodium (136-148) mmol/L Potassium (3.5-5.1) mmol/L Chloride (98-107) mmol/L Carbon Dioxide (21.0-32.0) mmol/L BUN (7.0-18.0) mg/dL Creatinine (0.8-1.3) mg/dL Est Cr Clr Drug Dosing mL/min Estimated GFR (MDRD) ml/min Glucose (74-106) mg/dL Calcium (8.5-10.1) mg/dL Phosphorus (2.6-4.7) mg/dL Magnesium (1.8-2.4) mg/dL Total Bilirubin (0.2-1.0) mg/dL AST (15-37) IU/L ALT (14-63) IU/L Alkaline Phosphatase (46-116) U/L Troponin I (0.000-0.056) ng/mL Total Protein (6.4-8.2) g/dL Albumin (3.4-5.0) g/dL Globulin (2.0-3.5) g/dL Albumin/Globulin Ratio (1.3-2.8) Amylase (25-115) U/L Lipase (73-393) U/L Urine Color YELLOW Urine Appearance CLEAR Urine pH 6.0 (5.0-8.0) Ur Specific [place] 1.020 (1.001-1.035) Urine Protein NEGATIVE (NEGATIVE) mg/dL Urine Glucose (UA) NEGATIVE (NEGATIVE) mg/dL Urine Ketones NEGATIVE (NEGATIVE) mg/dL Urine Occult Blood NEGATIVE (NEGATIVE) Urine Nitrite NEGATIVE (NEGATIVE) Urine Bilirubin MODERATE H (NEGATIVE) Urine Ictotest NEGATIVE Urine Urobilinogen 4.0 H (<2.0) EU/dL Ur Leukocyte Esterase NEGATIVE (NEGATIVE) Urine RBC 0-1 (0-2/HPF) Urine WBC 0-1 (0-5/HPF) Ur Epithelial Cells RARE (NONE-FEW) Calcium Oxalate Crystal OCCASIONAL (NEGATIVE) Urine Bacteria RARE (NEGATIVE) Fluid Type PER Fluid Color Fluid Appearance Fluid WBC K/uL Fluid RBC M/uL Fluid Mononuclear Cell % Fl Polymorphonucl Cell % Fluid Glucose 101 mg/dL Fluid Total Protein 1.8 g/dL Fluid Albumin g/dL Fluid LDH U/L Urine Opiates Screen NEGATIVE (NEGATIVE) Ur Oxycodone Screen NEGATIVE (NEGATIVE) Urine Methadone Screen NEGATIVE (NEGATIVE) Ur Barbiturates Screen NEGATIVE (NEGATIVE) Ur Phencyclidine Scrn NEGATIVE (NEGATIVE) Ur Amphetamine Screen NEGATIVE (NEGATIVE) U Methamphetamines Scrn NEGATIVE (NEGATIVE) U Benzodiazepines Scrn POSITIVE (NEGATIVE) U Cocaine Metab Screen NEGATIVE (NEGATIVE) U Marijuana (THC) Screen NEGATIVE (NEGATIVE) Ethyl Alcohol mg/dL Blood Type Antibody Screen 03/12/18 03/12/18 03/13/18 Range/Units 16:45 18:50 01:10 WBC (4.0-11.0) K/uL RBC (4.50-5.90) M/uL Hgb (13.0-17.0) g/dL Hct (38.0-50.0) % MCV (80.0-98.0) fL MCH (27.0-32.0) pg MCHC (31.0-37.0) g/dL RDW Std Deviation (28.0-62.0) fl RDW Coeff of Annette (11.0-15.0) % Plt Count (150-400) K/uL MPV (7.40-12.00) fL Neut % (Auto) (48.0-80.0) % Lymph % (Auto) (16.0-40.0) % Lake % (Auto) (0.0-15.0) % Eos % (Auto) (0.0-7.0) % Baso % (Auto) (0.0-1.5) % Neut # (Auto) (1.4-5.7) K/uL Lymph # (Auto) (0.6-2.4) K/uL [place] # (Auto) (0.0-0.8) K/uL Eos # (Auto) (0.0-0.7) K/uL Baso # (Auto) (0.0-0.1) K/uL Nucleated RBC % /100WBC Nucleated RBCs # K/uL INR Sodium (136-148) mmol/L Potassium (3.5-5.1) mmol/L Chloride (98-107) mmol/L Carbon Dioxide (21.0-32.0) mmol/L BUN (7.0-18.0) mg/dL Creatinine (0.8-1.3) mg/dL Est Cr Clr Drug Dosing mL/min Estimated GFR (MDRD) ml/min Glucose (74-106) mg/dL Calcium (8.5-10.1) mg/dL Phosphorus (2.6-4.7) mg/dL Magnesium (1.8-2.4) mg/dL Total Bilirubin (0.2-1.0) mg/dL AST (15-37) IU/L ALT (14-63) IU/L Alkaline Phosphatase (46-116) U/L Troponin I 0.224 H* 0.174 H* (0.000-0.056) ng/mL Total Protein (6.4-8.2) g/dL Albumin (3.4-5.0) g/dL Globulin (2.0-3.5) g/dL Albumin/Globulin Ratio (1.3-2.8) Amylase (25-115) U/L Lipase (73-393) U/L Urine Color Urine Appearance Urine pH (5.0-8.0) Ur Specific [place] (1.001-1.035) Urine Protein (NEGATIVE) mg/dL Urine Glucose (UA) (NEGATIVE) mg/dL Urine Ketones (NEGATIVE) mg/dL Urine Occult Blood (NEGATIVE) Urine Nitrite (NEGATIVE) Urine Bilirubin (NEGATIVE) Urine Ictotest Urine Urobilinogen (<2.0) EU/dL Ur Leukocyte Esterase (NEGATIVE) Urine RBC (0-2/HPF) Urine WBC (0-5/HPF) Ur Epithelial Cells (NONE-FEW) Calcium Oxalate Crystal (NEGATIVE) Urine Bacteria (NEGATIVE) Fluid Type PER Fluid Color YELLOW Fluid Appearance CLEAR Fluid WBC 0.14 K/uL Fluid RBC 0.00 M/uL Fluid Mononuclear Cell 90.8 % Fl Polymorphonucl Cell 9.2 % Fluid Glucose mg/dL Fluid Total Protein g/dL Fluid Albumin 0.8 g/dL Fluid LDH 82 U/L Urine Opiates Screen (NEGATIVE) Ur Oxycodone Screen (NEGATIVE) Urine Methadone Screen (NEGATIVE) Ur Barbiturates Screen (NEGATIVE) Ur Phencyclidine Scrn (NEGATIVE) Ur Amphetamine Screen (NEGATIVE) U Methamphetamines Scrn (NEGATIVE) U Benzodiazepines Scrn (NEGATIVE) U Cocaine Metab Screen (NEGATIVE) U Marijuana (THC) Screen (NEGATIVE) Ethyl Alcohol mg/dL Blood Type Antibody Screen 03/13/18 03/13/18 03/13/18 Range/Units 04:55 04:55 04:55 WBC 4.31 (4.0-11.0) K/uL RBC 2.65 L (4.50-5.90) M/uL Hgb 7.9 L (13.0-17.0) g/dL Hct 24.0 L (38.0-50.0) % MCV 90.6 (80.0-98.0) fL MCH 29.8 (27.0-32.0) pg MCHC 32.9 (31.0-37.0) g/dL RDW Std Deviation 61.9 (28.0-62.0) fl RDW Coeff of Annette 19 H (11.0-15.0) % Plt Count 97 L (150-400) K/uL MPV 9.90 (7.40-12.00) fL Neut % (Auto) 56.4 (48.0-80.0) % Lymph % (Auto) 30.4 (16.0-40.0) % Lake % (Auto) 11.4 (0.0-15.0) % Eos % (Auto) 0.9 (0.0-7.0) % Baso % (Auto) 0.9 (0.0-1.5) % Neut # (Auto) 2.4 (1.4-5.7) K/uL Lymph # (Auto) 1.3 (0.6-2.4) K/uL Lake # (Auto) 0.5 (0.0-0.8) K/uL Eos # (Auto) 0.0 (0.0-0.7) K/uL Baso # (Auto) 0.0 (0.0-0.1) K/uL Nucleated RBC % 0.0 /100WBC Nucleated RBCs # 0 K/uL INR 1.43 Sodium 132 L (136-148) mmol/L Potassium 3.2 L (3.5-5.1) mmol/L Chloride 96 L (98-107) mmol/L Carbon Dioxide 33.5 H (21.0-32.0) mmol/L BUN 8 (7.0-18.0) mg/dL Creatinine 0.8 (0.8-1.3) mg/dL Est Cr Clr Drug Dosing 98.67 mL/min Estimated GFR (MDRD) > 60.0 ml/min Glucose 96 (74-106) mg/dL Calcium 7.6 L (8.5-10.1) mg/dL Phosphorus 2.4 L (2.6-4.7) mg/dL Magnesium 1.2 L (1.8-2.4) mg/dL Total Bilirubin 1.7 H (0.2-1.0) mg/dL AST 58 H (15-37) IU/L ALT 25 (14-63) IU/L Alkaline Phosphatase 120 H (46-116) U/L Troponin I (0.000-0.056) ng/mL Total Protein 5.5 L (6.4-8.2) g/dL Albumin 2.1 L (3.4-5.0) g/dL Globulin 3.4 (2.0-3.5) g/dL Albumin/Globulin Ratio 0.6 L (1.3-2.8) Amylase (25-115) U/L Lipase (73-393) U/L Urine Color Urine Appearance Urine pH (5.0-8.0) Ur Specific [place] (1.001-1.035) Urine Protein (NEGATIVE) mg/dL Urine Glucose (UA) (NEGATIVE) mg/dL Urine Ketones (NEGATIVE) mg/dL Urine Occult Blood (NEGATIVE) Urine Nitrite (NEGATIVE) Urine Bilirubin (NEGATIVE) Urine Ictotest Urine Urobilinogen (<2.0) EU/dL Ur Leukocyte Esterase (NEGATIVE) Urine RBC (0-2/HPF) Urine WBC (0-5/HPF) Ur Epithelial Cells (NONE-FEW) Calcium Oxalate Crystal (NEGATIVE) Urine Bacteria (NEGATIVE) Fluid Type Fluid Color Fluid Appearance Fluid WBC K/uL Fluid RBC M/uL Fluid Mononuclear Cell % Fl Polymorphonucl Cell % Fluid Glucose mg/dL Fluid Total Protein g/dL Fluid Albumin g/dL Fluid LDH U/L Urine Opiates Screen (NEGATIVE) Ur Oxycodone Screen (NEGATIVE) Urine Methadone Screen (NEGATIVE) Ur Barbiturates Screen (NEGATIVE) Ur Phencyclidine Scrn (NEGATIVE) Ur Amphetamine Screen (NEGATIVE) U Methamphetamines Scrn (NEGATIVE) U Benzodiazepines Scrn (NEGATIVE) U Cocaine Metab Screen (NEGATIVE) U Marijuana (THC) Screen (NEGATIVE) Ethyl Alcohol mg/dL Blood Type Antibody Screen Med Orders - Current: Current Medications Folic Acid (Folic Acid) 1 mg PO DAILY [facility] Last Admin: 03/13/18 08:27 Dose: 1 mg Levofloxacin/Dextrose 750 mg/ (Premix) 150 mls @ 100 mls/hr IV Q24H [facility] Last Admin: 03/13/18 03:00 Dose: 100 mls/hr Lorazepam (Ativan) 0 mg IVPUSH Q4H PRN; Protocol PRN Reason: Agitation Ondansetron HCl (Zofran) 4 mg IVPUSH Q4H PRN PRN Reason: Nausea Pantoprazole Sodium (Protonix) 40 mg PO DAILY [facility] Last Admin: 03/13/18 10:24 Dose: 40 mg Sodium Phosphate (Neutra-Phos) 250 mg PO BID [facility] Last Admin: 03/13/18 10:24 Dose: 250 mg Thiamine HCl (Vitamin B-1) 100 mg PO DAILY [facility] Last Admin: 03/13/18 08:28 Dose: 100 mg Discontinued Medications Aspirin (Aspirin) 324 mg PO ONETIME ONE Stop: 03/12/18 14:05 Last Admin: 03/12/18 14:39 Dose: 324 mg Sodium Chloride (Normal Saline) 1,000 mls @ 999 mls/hr IV STAT ONE Stop: 03/12/18 13:15 Last Admin: 03/12/18 12:32 Dose: 999 mls/hr Magnesium Sulfate 4 gm/ Premix 100 mls @ 50 mls/hr IV ONETIME ONE Stop: 03/13/18 11:21 Last Admin: 03/13/18 10:21 Dose: 50 mls/hr Iopamidol (Isovue Multipack-370 (76%)) 100 ml IVPUSH ONETIME STA Stop: 03/12/18 13:32 Last Admin: 03/12/18 13:31 Dose: 100 ml Morphine Sulfate (Morphine) 4 mg IVPUSH ONETIME ONE Stop: 03/12/18 12:16 Last Admin: 03/12/18 12:50 Dose: Not Given Morphine Sulfate (Morphine) 4 mg IVPUSH ONETIME ONE Stop: 03/12/18 12:46 Last Admin: 03/12/18 12:46 Dose: 2 mg Ondansetron HCl (Zofran) 4 mg IVPUSH ONETIME ONE Stop: 03/12/18 12:16 Last Admin: 03/12/18 12:37 Dose: 4 mg Potassium Chloride (Klor-Con M20) 40 meq PO ONETIME ONE Stop: 03/12/18 15:08 Last Admin: 03/12/18 15:36 Dose: 40 meq Potassium Chloride (Klor-Con M20) 40 meq PO ONETIME ONE Stop: 03/13/18 09:23 Last Admin: 03/13/18 10:24 Dose: 40 meq - Exam General: Alert, Cooperative Lungs: Clear to Auscultation, Normal Respiratory Effort Cardiovascular: Regular Rate, Regular Rhythm GI/Abdominal Exam: Normal Bowel Sounds, Soft, Non-Tender Back Exam: Full Range of Motion - Problem List Review Problem List Initiated/Reviewed/Updated: Yes - My Orders Last 24 Hours: My Active Orders 03/12/18 15:15 Ondansetron [Zofran] 4 mg IVPUSH Q4H PRN Resuscitation Status Routine 03/12/18 15:17 Oxygen Therapy [RC] PRN VTE/DVT Education [RC] PER UNIT ROUTINE Vital Signs [RC] Q4H 03/12/18 15:19 Sequential Compression Device [OM.PC] Per Unit Routine 03/12/18 15:23 LORazepam [Ativan] See Protocol IVPUSH Q4H PRN 03/12/18 15:29 Telemetry Monitoring [Cardiac Monitoring] [RC] Q8H 03/12/18 15:30 Folic Acid 1 mg PO DAILY Thiamine [Vitamin B-1] 100 mg PO DAILY 03/12/18 16:45 GLUCOSE,BODY FLUID [BF] Stat PROTEIN,BODY FLUID [BF] Stat 03/13/18 02:30 Levofloxacin/Dextrose 5%-Water [Levaquin in D5W 750 MG/150 ML] 750 mg Premix Bag 1 bag IV Q24H 03/13/18 11:59 Abdomen Ltd [US] Routine Echo 2D wo Cont [US] Routine - Plan Plan:: 63 yo male who presents with ETOH cirrhosis, ascities, and constipation ETOH cirrhosis: s/p paracentesis with 4800 ml removed Hypokalemia: replacing ETOH detox: CIWA protocol with thiamin and folic acid Possible pneumonia seen on CXR at [facility]: continue levaquin Anemia: hemoccult stool but no signs of bleeding,
[2018-03-14] MEDS: Levofloxacin/Dextrose 5%-Water 750 MG in Premix Bag 1 BAG IV SCH (02:23)
[2018-03-14 06:50] LABS: CHLORIDE,CL 93 mmol/L (98-107); SODIUM,NA 129 mmol/L (136-148)
[2018-03-14] MEDS: Folic Acid 1 MG Tab PO SCH (08:04)
[2018-03-14] MEDS: Phosphorus #1 250 MG Tab PO SCH (08:04)
[2018-03-14] MEDS: Thiamine 100 MG Tab PO SCH (08:05)
[2018-03-14] MEDS: Pantoprazole 40 MG Tab.CR PO SCH (08:05)
[2018-03-14] MEDS ORDERED: Magnesium Sulfate/Water 2 GM in Premix Bag 1 BAG IV ONE (13:15)
[2018-03-14] MEDS ORDERED: Potassium Chloride 20 MEQ Tab.ER PO ONE (13:15)
--- NOTE | 2018-03-14 13:18 | PCM.PN ---
- General Info Date of Service: 03/14/18 - Review of Systems Systems Review Comment:: feeling better, no abdominal pain, no blood in stool - Patient Data Vitals - Most Recent: Last Vital Signs Temp 36.6 C 03/14/18 12:00 Pulse 99 03/14/18 12:00 Resp 14 03/14/18 08:00 BP 96/63 03/14/18 12:00 Pulse Ox 93 L 03/14/18 12:00 Weight - Most Recent: 77.2 kg I&O - Last 24 Hours: Intake & Output 03/13/18 03/14/18 03/14/18 22:59 06:59 14:59 Intake Total 1050 1190 Output Total 850 350 Balance 200 840 Lab Results Last 24 Hours: Laboratory Results - last 24 hr 03/14/18 03/14/18 Range/Units 05:55 05:55 WBC 4.36 (4.0-11.0) K/uL RBC 2.82 L (4.50-5.90) M/uL Hgb 8.4 L (13.0-17.0) g/dL Hct 25.6 L (38.0-50.0) % MCV 90.8 (80.0-98.0) fL MCH 29.8 (27.0-32.0) pg MCHC 32.8 (31.0-37.0) g/dL RDW Std Deviation 63.5 H (28.0-62.0) fl RDW Coeff of Annette 19 H (11.0-15.0) % Plt Count 97 L (150-400) K/uL MPV 10.10 (7.40-12.00) fL Neut % (Auto) 57.7 (48.0-80.0) % Lymph % (Auto) 28.7 (16.0-40.0) % [place] % (Auto) 11.5 (0.0-15.0) % Eos % (Auto) 1.6 (0.0-7.0) % Baso % (Auto) 0.5 (0.0-1.5) % Neut # (Auto) 2.5 (1.4-5.7) K/uL Lymph # (Auto) 1.3 (0.6-2.4) K/uL [place] # (Auto) 0.5 (0.0-0.8) K/uL Eos # (Auto) 0.1 (0.0-0.7) K/uL Baso # (Auto) 0.0 (0.0-0.1) K/uL Nucleated RBC % 0.0 /100WBC Nucleated RBCs # 0 K/uL Sodium 129 L (136-148) mmol/L Potassium 3.4 L (3.5-5.1) mmol/L Chloride 93 L (98-107) mmol/L Carbon Dioxide 29.8 (21.0-32.0) mmol/L BUN 8 (7.0-18.0) mg/dL Creatinine 0.8 (0.8-1.3) mg/dL Est Cr Clr Drug Dosing 105.88 mL/min Estimated GFR (MDRD) > 60.0 ml/min Glucose 96 (74-106) mg/dL Calcium 7.9 L (8.5-10.1) mg/dL Phosphorus 2.8 (2.6-4.7) mg/dL Magnesium 1.5 L (1.8-2.4) mg/dL Robin Results Last 24 Hours: Microbiology 03/12/18 12:30 Aerobic Blood Culture - Preliminary Blood - Venous - Lab Draw NO GROWTH AFTER 2 DAYS Anaerobic Blood Culture - Preliminary NO GROWTH AFTER 2 DAYS 03/12/18 12:20 Aerobic Blood Culture - Preliminary Blood - Venous NO GROWTH AFTER 2 DAYS Anaerobic Blood Culture - Preliminary NO GROWTH AFTER 2 DAYS 03/13/18 12:00 Stool Occult Blood (ROBIN) - Final Stool / Feces POSITIVE OCCULT BLOOD Med Orders - Current: Current Medications Bisacodyl (Dulcolax) 10 mg PO DAILY PRN PRN Reason: Constipation Folic Acid (Folic Acid) 1 mg PO DAILY [facility] Last Admin: 03/14/18 08:04 Dose: 1 mg Levofloxacin/Dextrose 750 mg/ (Premix) 150 mls @ 100 mls/hr IV Q24H [facility] Last Infusion: 03/14/18 04:00 Dose: Infused Magnesium Sulfate 2 gm/ Premix 50 mls @ 50 mls/hr IV ONETIME ONE Stop: 03/14/18 14:14 Lorazepam (Ativan) 0 mg IVPUSH Q4H PRN; Protocol PRN Reason: Agitation Ondansetron HCl (Zofran) 4 mg IVPUSH Q4H PRN PRN Reason: Nausea Pantoprazole Sodium (Protonix) 40 mg PO DAILY [facility] Last Admin: 03/14/18 08:05 Dose: 40 mg Polyethylene Glycol (Miralax) 17 gm PO DAILY PRN PRN Reason: constipation Potassium Chloride (Klor-Con M20) 40 meq PO ONETIME ONE Stop: 03/14/18 13:16 Thiamine HCl (Vitamin B-1) 100 mg PO DAILY [facility] Last Admin: 03/14/18 08:05 Dose: 100 mg Discontinued Medications Aspirin (Aspirin) 324 mg PO ONETIME ONE Stop: 03/12/18 14:05 Last Admin: 03/12/18 14:39 Dose: 324 mg Sodium Chloride (Normal Saline) 1,000 mls @ 999 mls/hr IV STAT ONE Stop: 03/12/18 13:15 Last Admin: 03/12/18 12:32 Dose: 999 mls/hr Magnesium Sulfate 4 gm/ Premix 100 mls @ 50 mls/hr IV ONETIME ONE Stop: 03/13/18 11:21 Last Admin: 03/13/18 10:21 Dose: 50 mls/hr Iopamidol (Isovue Multipack-370 (76%)) 100 ml IVPUSH ONETIME STA Stop: 03/12/18 13:32 Last Admin: 03/12/18 13:31 Dose: 100 ml Morphine Sulfate (Morphine) 4 mg IVPUSH ONETIME ONE Stop: 03/12/18 12:16 Last Admin: 03/12/18 12:50 Dose: Not Given Morphine Sulfate (Morphine) 4 mg IVPUSH ONETIME ONE Stop: 03/12/18 12:46 Last Admin: 03/12/18 12:46 Dose: 2 mg Ondansetron HCl (Zofran) 4 mg IVPUSH ONETIME ONE Stop: 03/12/18 12:16 Last Admin: 03/12/18 12:37 Dose: 4 mg Potassium Chloride (Klor-Con M20) 40 meq PO ONETIME ONE Stop: 03/12/18 15:08 Last Admin: 03/12/18 15:36 Dose: 40 meq Potassium Chloride (Klor-Con M20) 40 meq PO ONETIME ONE Stop: 03/13/18 09:23 Last Admin: 03/13/18 10:24 Dose: 40 meq Sodium Phosphate (Neutra-Phos) 250 mg PO BID [facility] Last Admin: 03/14/18 08:04 Dose: 250 mg - Exam General: Alert, Oriented Lungs: Clear to Auscultation, Normal Respiratory Effort Cardiovascular: Regular Rate, Regular Rhythm GI/Abdominal Exam: Soft, Non-Tender Extremities: Non-Tender, No Pedal Edema Skin: Warm, Dry, Intact Neurological: No New Focal Deficit - Problem List Review Problem List Initiated/Reviewed/Updated: Yes - My Orders Last 24 Hours: My Active Orders 03/14/18 13:15 Magnesium Sulfate/Water [Magnesium Sulfate 2 GM in Water 50 ML] 2 gm Premix Bag 1 bag IV ONETIME Potassium Chloride [Klor-Con M20] 40 meq PO ONETIME ONE - Plan Plan:: 63 yo male who presents with ETOH cirrhosis, ascities, and constipation ETOH cirrhosis: s/p paracentesis with 4800 ml removed Hypokalemia: replacing Hypomagnesia: replacing ETOH detox: CIWA protocol with thiamin and folic acid Possible pneumonia seen on CXR at [facility]: continue levaquin Anemia: improving, hemocult positive, will need referral for endoscopy
[2018-03-15] MEDS: Levofloxacin/Dextrose 5%-Water 750 MG in Premix Bag 1 BAG IV SCH (01:40)
[2018-03-15 07:03] LABS: CHLORIDE,CL 94 mmol/L (98-107); SODIUM,NA 130 mmol/L (136-148)
[2018-03-15] MEDS ORDERED: Magnesium Sulfate/Water 2 GM in Premix Bag 1 BAG IV ONE (08:08)
[2018-03-15] MEDS: Thiamine 100 MG Tab PO SCH (08:31)
[2018-03-15] MEDS: Pantoprazole 40 MG Tab.CR PO SCH (08:31)
[2018-03-15] MEDS: Folic Acid 1 MG Tab PO SCH (08:31)
--- NOTE | 2018-03-15 11:19 | PCM.DCSUM1 ---
Discharge Summary - Hospital Course Free Text/Narrative:: Admission date: 03/12/2018 Discharge date: 03/15/2018 Admission diagnosis: #1. Etoh cirrhosis #2. ascites #3. constipation #4. hypokalemia #5. chronic alcoholism #6. Pneumonia Discharge diagnosis: #1. Ascites s/p paracentesis #2. Constipation #3. hypokalemia #4. Chronic alcoholism #5. Normocytic anemia - FOBT+ Hospital course: 63M that presented with a CC of abdominal pain and bloating secondary to cirrhosis, ascites because of chronic alcohol use. Patient received a paracentesis draining 4800mL of fluid, he tolerated the procedure well. Incidentally, he was found to have a normocytic anemia with a hemoglobin of 8.5 prior to discharge, FOBT+. He would benefit from an EGD as an outpatient. He was sent home and advised to take lasix, potassium, protonix as prescribed. he is to f/u with his PCP and surgery. He was advised to refrain from alcohol use. he agrees. - Discharge Data Discharge Date: 03/15/18 Discharge Disposition: Home, Self-Care 01 Condition: Stable - Patient Instructions Diet: Regular Diet as Tolerated, No Alcoholic Beverages Activity: As Tolerated Driving: May Drive Today Showering/Bathing: May Shower Wound/Incision Care: Keep Operative Site/Wound Site Clean and Dry Notify Provider of: Fever, Increased Pain, Swelling and Redness, Nausea and/or Vomiting - Discharge Plan Prescriptions/Med Rec: Furosemide 20 mg PO BID 30 Days #60 tablet Pantoprazole Sodium [Protonix] 40 mg PO BID #60 tablet. Potassium Chloride 20 meq PO DAILY 30 Days #30 tablet.er Home Medications: Home Meds Acamprosate Calcium 2 tab PO TID 10/10/16 [History] Omeprazole Magnesium [Prilosec Otc] 40 mg PO DAILY #30 tablet. 10/15/16 [Rx] LORazepam 1 mg PO QID PRN 03/12/18 [History] buPROPion [buPROPion XL] 150 mg PO DAILY 03/12/18 [History] Furosemide 20 mg PO BID 30 Days #60 tablet 03/15/18 [Rx] Pantoprazole Sodium [Protonix] 40 mg PO BID #60 tablet. 03/15/18 [Rx] Potassium Chloride 20 meq PO DAILY 30 Days #30 tablet.er 03/15/18 [Rx] Referrals: Rea Jones NP [Nurse Practitioner] - 03/20/18 9:00 am Ambar Ardon MD [Physician] - - Patient Data Vitals - Most Recent: Last Vital Signs Temp 36.9 C 03/15/18 08:00 Pulse 101 H 03/15/18 08:00 Resp 16 03/15/18 08:00 BP 95/58 L 03/15/18 08:00 Pulse Ox 93 L 03/15/18 08:00 Weight - Most Recent: 77.2 kg I&O - Last 24 hours: Intake & Output 03/14/18 03/15/18 03/15/18 22:59 06:59 14:59 Intake Total 900 750 Output Total 200 Balance 900 550 Lab Results - Last 24 hrs: Laboratory Results - last 24 hr 03/15/18 03/15/18 Range/Units 05:41 05:41 WBC 4.59 (4.0-11.0) K/uL RBC 2.80 L (4.50-5.90) M/uL Hgb 8.5 L (13.0-17.0) g/dL Hct 25.1 L (38.0-50.0) % MCV 89.6 (80.0-98.0) fL MCH 30.4 (27.0-32.0) pg MCHC 33.9 (31.0-37.0) g/dL RDW Std Deviation 63.9 H (28.0-62.0) fl RDW Coeff of Annette 20 H (11.0-15.0) % Plt Count 104 L (150-400) K/uL MPV 9.90 (7.40-12.00) fL Add Manual Diff YES Neutrophils % (Manual) 60 (48.0-80.0) % Band Neutrophils % 1 % Lymphocytes % (Manual) 34 (16.0-40.0) % Monocytes % (Manual) 5 (0.0-15.0) % Nucleated RBC % 0.0 /100WBC Absolute Seg Neuts 2.8 (1.4-5.7) Band Neutrophils # 0 Lymphocytes # (Manual) 1.6 (0.6-2.4) Monocytes # (Manual) 0.2 (0.0-0.8) Nucleated RBCs # 0 K/uL Sodium 130 L (136-148) mmol/L Potassium 3.5 (3.5-5.1) mmol/L Chloride 94 L (98-107) mmol/L Carbon Dioxide 29.9 (21.0-32.0) mmol/L BUN 7 (7.0-18.0) mg/dL Creatinine 0.9 (0.8-1.3) mg/dL Est Cr Clr Drug Dosing 94.12 mL/min Estimated GFR (MDRD) > 60.0 ml/min Glucose 96 (74-106) mg/dL Calcium 8.0 L (8.5-10.1) mg/dL Phosphorus 3.3 (2.6-4.7) mg/dL Magnesium 1.5 L (1.8-2.4) mg/dL MIRIAM Results - Last 24 hrs: Microbiology 03/12/18 12:30 Aerobic Blood Culture - Preliminary Blood - Venous - Lab Draw NO GROWTH AFTER 2 DAYS Anaerobic Blood Culture - Preliminary NO GROWTH AFTER 2 DAYS 03/12/18 12:20 Aerobic Blood Culture - Preliminary Blood - Venous NO GROWTH AFTER 2 DAYS Anaerobic Blood Culture - Preliminary NO GROWTH AFTER 2 DAYS Med Orders - Current: Current Medications Bisacodyl (Dulcolax) 10 mg PO DAILY PRN PRN Reason: Constipation Folic Acid (Folic Acid) 1 mg PO DAILY COUNT INCLUDES THE [facility] Last Admin: 03/15/18 08:31 Dose: 1 mg Levofloxacin/Dextrose 750 mg/ (Premix) 150 mls @ 100 mls/hr IV Q24H COUNT INCLUDES THE [facility] Last Admin: 03/15/18 01:40 Dose: 100 mls/hr Lorazepam (Ativan) 0 mg IVPUSH Q4H PRN; Protocol PRN Reason: Agitation Last Admin: 03/15/18 01:00 Dose: 1 mg Ondansetron HCl (Zofran) 4 mg IVPUSH Q4H PRN PRN Reason: Nausea Pantoprazole Sodium (Protonix) 40 mg PO DAILY COUNT INCLUDES THE [facility] Last Admin: 03/15/18 08:31 Dose: 40 mg Polyethylene Glycol (Miralax) 17 gm PO DAILY PRN PRN Reason: constipation Thiamine HCl (Vitamin B-1) 100 mg PO DAILY COUNT INCLUDES THE [facility] Last Admin: 03/15/18 08:31 Dose: 100 mg Discontinued Medications Aspirin (Aspirin) 324 mg PO ONETIME ONE Stop: 03/12/18 14:05 Last Admin: 03/12/18 14:39 Dose: 324 mg Sodium Chloride (Normal Saline) 1,000 mls @ 999 mls/hr IV STAT ONE Stop: 03/12/18 13:15 Last Admin: 03/12/18 12:32 Dose: 999 mls/hr Magnesium Sulfate 4 gm/ Premix 100 mls @ 50 mls/hr IV ONETIME ONE Stop: 03/13/18 11:21 Last Admin: 03/13/18 10:21 Dose: 50 mls/hr Magnesium Sulfate 2 gm/ Premix 50 mls @ 50 mls/hr IV ONETIME ONE Stop: 03/14/18 14:14 Last Admin: 03/14/18 13:54 Dose: 50 mls/hr Magnesium Sulfate 2 gm/ Premix 50 mls @ 25 mls/hr IV ONETIME ONE Stop: 03/15/18 10:07 Last Admin: 03/15/18 08:25 Dose: 25 mls/hr Iopamidol (Isovue Multipack-370 (76%)) 100 ml IVPUSH ONETIME STA Stop: 03/12/18 13:32 Last Admin: 03/12/18 13:31 Dose: 100 ml Morphine Sulfate (Morphine) 4 mg IVPUSH ONETIME ONE Stop: 03/12/18 12:16 Last Admin: 03/12/18 12:50 Dose: Not Given Morphine Sulfate (Morphine) 4 mg IVPUSH ONETIME ONE Stop: 03/12/18 12:46 Last Admin: 03/12/18 12:46 Dose: 2 mg Ondansetron HCl (Zofran) 4 mg IVPUSH ONETIME ONE Stop: 03/12/18 12:16 Last Admin: 03/12/18 12:37 Dose: 4 mg Potassium Chloride (Klor-Con M20) 40 meq PO ONETIME ONE Stop: 03/12/18 15:08 Last Admin: 03/12/18 15:36 Dose: 40 meq Potassium Chloride (Klor-Con M20) 40 meq PO ONETIME ONE Stop: 03/13/18 09:23 Last Admin: 03/13/18 10:24 Dose: 40 meq Potassium Chloride (Klor-Con M20) 40 meq PO ONETIME ONE Stop: 03/14/18 13:16 Last Admin: 03/14/18 13:56 Dose: 40 meq Sodium Phosphate (Neutra-Phos) 250 mg PO BID JAIMIE Last Admin: 03/14/18 08:04 Dose: 250 mg
[2018-03-15 11:39] VITALS: BP 91/54
--- NOTE | 2018-03-16 09:47 | US ---
EXAM DATE: 03/12/18 PATIENT'S AGE: 63 Patient: WANDA GASPAR Facility: [place], [place] Site . Site : [id number] Study: US Abdomen [id number]/[id number] 4:13:23 PM Ordering Physician: Rachele Fisher Final Report: HISTORY: Cirrhosis. FINDINGS: Multiple reeves scale static images from an abdomen ultrasound re-evaluation compared with CT 12 March 2018. Ascites is seen around the liver. The liver is small consistent with history of cirrhosis. Echotexture is coarse without mass or intrahepatic biliary dilatation. The common bile duct is 2 mm. The gallbladder is not well seen and appears contracted due to patient eating recently. The patient has a negative sonographic Vernon`s sign. The pancreas is not well seen. Right kidney measures 11.7 cm is free of hydronephrosis or mass. IMPRESSION: 1. Small coarse liver consistent with the history of cirrhosis. 2. Ascites. 3. The gallbladder appears contracted due to recent meal. Common bile duct is normal. The patient has a negative sonographic Vernon`s sign. 4. Pancreas is poorly visualized. Dictated by Sharonda Gonsales MD @ 03/13/2018 5:04:00 PM Dictated by: Sharonda Gonsales MD @ 03/13/2018 17:04:06 (Electronic Signature) Report Signed by Proxy. HAY
== END 2018-03-15 19:10 | disposition home or self-care (01) | DRG 432 ==
LOC: MW.ED 12:01 → MW.MS 15:24
PROVIDERS: ADMIT Internal Medicine; ATTEND Internal Medicine
PROC: 0W9G3ZZ Drainage of Peritoneal Cavity, Percutaneous Approach (ICD-10-PCS; principal; 2018-03-12)
DX: K70.31 Alcoholic cirrhosis of liver with ascites (principal); J18.9 Pneumonia, unspecified organism; F10.20 Alcohol dependence, uncomplicated; K59.00 Constipation, unspecified; E87.6 Hypokalemia; D64.9 Anemia, unspecified; E83.42 Hypomagnesemia; I95.9 Hypotension, unspecified; F32.9 Major depressive disorder, single episode, unspecified; F17.210 Nicotine dependence, cigarettes, uncomplicated; Z79.899 Other long term (current) drug therapy; Z87.820 Personal history of traumatic brain injury
CPT/HCPCS: 36415; 49083; 71046; 71046-26; 74177; 74177-26; 76705; 76705-26; 80048; 80053; 80305; 81001; 82150; 82272; 82945; 83615; 83690; 83735; 84100; 84157; 84484; 85025; 85610; 86850; 86900; 86901; 87040; 89050; 93005; 93306; 96361; 96374; 96375; 99285-25; A9270-GY; G0480; J1956; J2060; J2270; J2405; J3475; J7040; Q9967